=== PATIENT | female | born 1955 | race Caucasian/White ===

== ENCOUNTER → 2017-02-21 | Outpatient (CLI) | payer OTHER ==
[~2017-02-21] MED LIST: GADOBUTROL 10 ML VIAL IVP ONE
== END ==
LOC: FIMAGING 14:05
PROVIDERS: ATTEND Internal Medicine Hematology & Oncology
DX: C50.311 Malignant neoplasm of lower-inner quadrant of right female breast (principal)
CPT/HCPCS: 0159T; A9585; C8908

== ENCOUNTER → 2017-09-28 | Outpatient (CLI) | payer OTHER | LOC: FIMAGING 08:04 | PROVIDERS: ATTEND Internal Medicine Hematology & Oncology | DX: Z12.31 Encounter for screening mammogram for malignant neoplasm of breast (principal); Z85.3 Personal history of malignant neoplasm of breast ==

== ENCOUNTER → 2018-03-15 | Outpatient (CLI) | payer OTHER | LOC: FIMAGING 11:55 | PROVIDERS: ATTEND Internal Medicine Hematology & Oncology | DX: N63.13 Unspecified lump in the right breast, lower outer quadrant (principal); Z85.3 Personal history of malignant neoplasm of breast | CPT/HCPCS: 0159T; A9585; C8908 ==

== ENCOUNTER 2018-08-14 15:03 | Inpatient (IN) | payer OTHER ==
--- NOTE | 2018-08-14 15:12 | EDPHY ---
H & P Stated Complaint: ulcerative colitis flare Time Seen by Provider: 08/14/18 15:11 HPI/ROS: CHIEF COMPLAINT: Worsening ulcerative colitis HISTORY OF PRESENT ILLNESS: The patient presents to the ED with complaints of worsening out ulcerative colitis with 9/10 left lower quadrant pain, vomiting and decreased appetite. The patient has been struggling with the symptoms for some time and recently has been on a 30 day course of prednisone. The patient reports that she has been in communication with her framing carpenter today and ultimately was referred to the ED secondary to her severe symptoms. Patient denies any history of fever, melena or hematemesis. The patient has tried steroid suppositories without improvement of her symptoms. The patient denies any upper respiratory symptoms of cough or congestion. REVIEW OF SYSTEMS: A comprehensive 10 point review of systems is otherwise negative aside from elements mentioned in the history of present illness. Source: Patient Exam Limitations: No limitations - Personal History Current Tetanus Diphtheria and Acellular Pertussis (TDAP): Yes - Medical/Surgical History Hx Asthma: No Hx Chronic Respiratory Disease: No Hx Diabetes: No Hx Cardiac Disease: No Hx Renal Disease: No Hx Cirrhosis: No Hx Alcoholism: No Hx HIV/AIDS: No Hx Splenectomy or Spleen Trauma: No Other PMH: ulcerative colitis - Social History Smoking Status: Never smoked - Physical Exam Exam: General Appearance: Alert, no distress Eyes: Pupils equal and round no pallor or injection ENT, Mouth: Mucous membranes moist Respiratory: There are no retractions, lungs are clear to auscultation Cardiovascular: Regular rate and rhythm Gastrointestinal: Diffuse abdominal tenderness greatest in the left lower quadrant Neurological: 5/5 strength all 4 extremities Skin: Warm and dry, no rashes Musculoskeletal: Neck is supple nontender Extremities: symmetrical, full range of motion Constitutional: Initial Vital Signs Temperature (C) 36.5 C 08/14/18 15:07 Heart Rate 85 08/14/18 15:07 Respiratory Rate 18 08/14/18 15:07 Blood Pressure 118/72 08/14/18 15:07 O2 Sat (%) 98 08/14/18 15:07 O2 Delivery Mode Room Air Allergies/Adverse Reactions: meperidine HCl [From Demerol] Allergy (Verified 08/14/18 15:05) SHORTNESS OF BREATHE Home Medications: Medication Instructions Recorded Estradiol [Estrace Vaginal (*)] 08/14/18 Hydrocortisone [Colocort (*)] 100 mg MO ONCE 08/14/18 Hyoscyamine Sulfate [Levsin, 0.125 mg PO 08/14/18 Hyomax-Sl 0.125 mg (*)] Mesalamine [Canasa Suppository (*)] 1,000 mg [place] HS 08/14/18 predniSONE [predniSONE] 10 mg PO 08/14/18 Medical Decision Making - Diagnostics Imaging Results: Imaging Impressions Abdomen CT 08/14/18 16:22 Impression: 1. Diffuse thickening of the descending and rectosigmoid colon, compatible with colitis, without perforation or abscess. 2. Moderate stool in the proximal colon. 3. Indeterminate 5 mm right liver lesion, which could represent an hemangioma, complex cyst, or other etiology, incompletely characterized on this study. Due to the small size of this finding, it is likely too small to definitively characterize by cross-sectional imaging. Consider MR abdomen with contrast in 3- 6 months to assess for stability in size, and to attempt further characterization unless there are previous studies to document stability of this finding. 4. Additional findings as above. Findings discussed with Dr. Jef Roy on 08/14/2018 at 17:25. ED Course/Re-evaluation: The patient presents to the ED with worsening abdominal pain and vomiting in the setting of known ulcerative colitis which has been refractory to a month of oral steroids. The patient was noted to have fairly significant tenderness on exam. She also was noted to have thrombocytosis. The CT scan of the abdomen pelvis demonstrates fairly significant colitis. The patient had an IV established. She received a L of normal saline. She received IV Zofran. The patient will be started on IV Solu-Medrol. She will require admission to the hospital in a setting of her refractory symptoms. Consultation is made with Dr. Lyman from the hospitalist service. Dr. Harris from Gastroenterology is also been notified. Differential Diagnosis: Differential diagnosis considered includes colitis, perforation, obstruction, diverticulitis - Data Points Laboratory Results: Laboratory Results 08/14/18 15:20 08/14/18 15:20 08/14/18 08/14/18 15:20 15:20 WBC 5.47 10^3/uL 10^3/uL (3.80-9.50) RBC 3.46 10^6/uL L 10^6/uL (4.18-5.33) Hgb 10.0 g/dL L g/dL (12.6-16.3) Hct 30.2 % L % (38.0-47.0) MCV 87.3 fL fL (81.5-99.8) MCH 28.9 pg pg (27.9-34.1) MCHC 33.1 g/dL g/dL (32.4-36.7) RDW 12.9 % % (11.5-15.2) Plt Count 616 10^3/uL H 10^3/uL (150-400) MPV 8.1 fL L fL (8.7-11.7) Neut % (Auto) Not Reported Lymph % (Auto) Not Reported [place] % (Auto) Not Reported Eos % (Auto) Not Reported Baso % (Auto) Not Reported Nucleat RBC Rel Count Not Reported Absolute Neuts (auto) Not Reported Absolute Lymphs (auto) Not Reported Absolute Monos (auto) Not Reported Absolute Eos (auto) Not Reported Absolute Basos (auto) Not Reported Absolute Nucleated RBC Not Reported Immature Gran % Not Reported Seg Neutrophils % 66.7 % % Band Neutrophils % 22.2 % % Lymphocytes % 8.1 % % Monocytes % 3.0 % % Eosinophils % 0.0 % % Basophils % 0.0 % % Metamyelocytes % 0.0 % % Myelocytes % 0.0 % % Promyelocytes % 0.0 % % Blast Cells % 0.0 % % Immature Gran # Not Reported Absolute Seg Neuts 3.65 10^3/uL 10^3/uL (1.70-6.50) Absolute Band Neuts 1.21 10^3/uL H 10^3/uL (0.00-0.70) Absolute Lymphocytes 0.44 10^3/uL L 10^3/uL (1.00-3.00) Absolute Monocytes 0.16 10^3/uL L 10^3/uL (0.30-0.80) Absolute Eosinophils 0.00 10^3/uL L 10^3/uL (0.03-0.40) Absolute Basophils 0.00 10^3/uL L 10^3/uL (0.02-0.10) Absolute Metamyelocyte 0.00 10^3/mL 10^3/mL (0.00-0.00) Absolute Myelocytes 0.00 10^3/mL 10^3/mL (0.00-0.00) Absolute Promyelocytes 0.00 10^3/uL 10^3/uL (0.00-0.00) Absolute Plasma Cells 0.00 10^3/uL 10^3/uL (0.00-0.00) Nucleated RBCs 0 /100 WBC /100 WBC (0-0) Absolute Blast Cells 0.00 10^3/uL 10^3/uL (0.00-0.00) Plasma Cells % 0.0 % % Toxic Granulation PRESENT H Platelet Estimate INCREASED H (ADEQ) Polychromasia 1+ H Echinocytes 1+ H Sodium 132 mEq/L L mEq/L (135-145) Potassium 4.5 mEq/L mEq/L (3.3-5.0) Chloride 97 mEq/L mEq/L (97-110) Carbon Dioxide 23 mEq/l mEq/l (22-31) Anion Gap 12 mEq/L mEq/L (6-14) BUN 15 mg/dL mg/dL (7-23) Creatinine 0.8 mg/dL mg/dL (0.6-1.0) Estimated GFR > 60 Glucose 163 mg/dL H mg/dL (70-100) Calcium 8.8 mg/dL mg/dL (8.5-10.4) Total Bilirubin 0.2 mg/dL mg/dL (0.1-1.4) Conjugated Bilirubin 0.1 mg/dL mg/dL (0.0-0.5) Unconjugated Bilirubin 0.1 mg/dL mg/dL (0.0-1.1) AST 12 IU/L L IU/L (14-46) ALT 18 IU/L IU/L (9-52) Alkaline Phosphatase 66 IU/L IU/L (38-126) Total Protein 6.2 g/dL L g/dL (6.3-8.2) Albumin 3.1 g/dL L g/dL (3.5-5.0) Lipase 47 IU/L IU/L (23-300) Medications Given: Discontinued Medications Sodium Chloride (Ns) 1,000 mls @ 0 mls/hr IV EDNOW ONE; Wide Open PRN Reason: Protocol Stop: 08/14/18 15:31 Last Admin: 08/14/18 15:45 Dose: 1,000 mls Methylprednisolone Sodium Succinate (Solu-Medrol) 125 mg IVP EDNOW ONE Stop: 08/14/18 17:33 Last Admin: 08/14/18 17:39 Dose: 125 mg Departure - Departure Disposition: [facility] Inpatient Acute Clinical Impression: Abdominal pain Qualifiers: Abdominal location: left lower quadrant Qualified Code(s): R10.32 - Left lower quadrant pain Ulcerative colitis Qualifiers: Ulcerative colitis location: ulcerative pancolitis Digestive disease complication type: without complication Qualified Code(s): K51.00 - Ulcerative ( chronic) pancolitis without complications Condition: Fair
[2018-08-14] MEDS ORDERED: NS 1,000 ML IV ONE (15:30)
[2018-08-14 15:41] LABS: PLATELET COUNT 616 10^3/uL (150-400)
[2018-08-14] MEDS ORDERED: IOPAMIDOL (ISOVUE-300) 100 ML BTL ONE (16:39)
[2018-08-14] MEDS ORDERED: methylPREDNISolone SOD SUCC 125 MG/2 ML VIAL IVP ONE (17:32)
[2018-08-14] MEDS ORDERED: ACETAMINOPHEN 325 MG TAB PO PRN (18:35)
[2018-08-14] MEDS ORDERED: HYDROmorphONE/DILAUDID 1 MG/ML INJ IVP PRN (18:35)
[2018-08-14] MEDS ORDERED: ONDANSETRON 4 MG/2 ML VIAL IVP PRN (18:35)
[2018-08-14] MEDS ORDERED: ONDANSETRON DISINTEGRATING 4 MG TAB PO PRN (18:35)
[2018-08-14] MEDS ORDERED: IBUPROFEN 600 MG TAB PO PRN (18:57)
[2018-08-14] MEDS ORDERED: HYOSCYAMINE SULFATE 0.125 MG TAB PO PRN (18:57)
--- NOTE | 2018-08-14 19:04 | PDGENHP ---
History and Physical - Chief Complaint Abdominal Pain, Vomiting - History of Present Illness Missy Vicente is a 63 yo F with a PMHx of Ulcerative colitis (diagnosed around age 20) who presents to [facility] for worsening abdominal pain, nausea, vomiting, and decreased PO intake. Patient reports she has had "flare" symptoms for the past 6 months including bloody diarrhea, abdominal pain, nausea, and vomiting. She is followed by Dr. Cobb of GI of the [facility] who started her on a Prednisone taper 2 weeks ago. After decreasing to 30 mg Prednisone she began experiencing worsening symptoms. She called GI who recommended increasing back to 40 mg and present to ED. Previously, she was controlled on Mesalamine suppositories for flares. She has had episodes of sharp LLQ abdominal pain with associated nausea and vomiting. She has had continuous loose stools with bright red blood. History Information - Allergies/Home Medication List Allergies/Adverse Reactions: meperidine HCl [From Demerol] Allergy (Verified 08/14/18 18:07) SHORTNESS OF BREATHE Home Medications: Hyoscyamine Sulfate [Levsin, Hyomax-Sl 0.125 mg (*)] 0.125 mg PO Q4H PRN [Last Taken 08/14/18 0300] Ibuprofen [Motrin (*)] 600 mg PO Q6H PRN 08/14/18 [Last Taken 08/14/18] Mesalamine [Canasa Suppository (*)] 1,000 mg [place] HS 08/14/18 [Last Taken 08/12/18 ] predniSONE [predniSONE] 40 mg PO DAILY 08/14/18 [Last Taken 08/14/18] I have personally reviewed and updated: family history, medical history, social history, surgical history - Past Medical History Additional medical history: ulcerative colitis - Surgical History Reports: no pertinent surgical hx - Family History Positive for: non-pertinent - Social History Smoking Status: Never smoked Review of Systems Review of Systems: ROS: 10pt was reviewed & negative except for what was stated in HPI & below Physical Exam Physical Exam: Temp Pulse Resp BP Pulse Ox 36.5 C 76 16 125/71 H 97 08/14/18 15:07 08/14/18 17:08 08/14/18 17:08 08/14/18 17:08 08/14/18 17:08 Constitutional: uncomfortable Eyes: PERRL Ears, Nose, Mouth, Throat: moist mucous membranes Cardiovascular: regular rate and rhythym, no murmur, rub, or gallop Respiratory: no respiratory distress, clear to auscultation Gastrointestinal: tenderness, No rebound, No distension Genitourinary: No no bladder tenderness Skin: warm Musculoskeletal: full muscle strength Neurologic: AAOx3 Psychiatric: interacting appropriately Lab Data & Imaging Review 08/14/18 15:20 08/14/18 15:20 WBC 5.47 10^3/uL (3.80-9.50) 08/14/18 15:20 RBC 3.46 10^6/uL (4.18-5.33) L 08/14/18 15:20 Hgb 10.0 g/dL (12.6-16.3) L 08/14/18 15:20 Hct 30.2 % (38.0-47.0) L 08/14/18 15:20 MCV 87.3 fL (81.5-99.8) 08/14/18 15:20 MCH 28.9 pg (27.9-34.1) 08/14/18 15:20 MCHC 33.1 g/dL (32.4-36.7) 08/14/18 15:20 RDW 12.9 % (11.5-15.2) 08/14/18 15:20 Plt Count 616 10^3/uL (150-400) H 08/14/18 15:20 MPV 8.1 fL (8.7-11.7) L 08/14/18 15:20 Neut % (Auto) Not Reported 08/14/18 15:20 Lymph % (Auto) Not Reported 08/14/18 15:20 [place] % (Auto) Not Reported 08/14/18 15:20 Eos % (Auto) Not Reported 08/14/18 15:20 Baso % (Auto) Not Reported 08/14/18 15:20 Nucleat RBC Rel Count Not Reported 08/14/18 15:20 Absolute Neuts (auto) Not Reported 08/14/18 15:20 Absolute Lymphs (auto) Not Reported 08/14/18 15:20 Absolute Monos (auto) Not Reported 08/14/18 15:20 Absolute Eos (auto) Not Reported 08/14/18 15:20 Absolute Basos (auto) Not Reported 08/14/18 15:20 Absolute Nucleated RBC Not Reported 08/14/18 15:20 Immature Gran % Not Reported 08/14/18 15:20 Seg Neutrophils % 66.7 % 08/14/18 15:20 Band Neutrophils % 22.2 % 08/14/18 15:20 Lymphocytes % 8.1 % 08/14/18 15:20 Monocytes % 3.0 % 08/14/18 15:20 Eosinophils % 0.0 % 08/14/18 15:20 Basophils % 0.0 % 08/14/18 15:20 Metamyelocytes % 0.0 % 08/14/18 15:20 Myelocytes % 0.0 % 08/14/18 15:20 Promyelocytes % 0.0 % 08/14/18 15:20 Blast Cells % 0.0 % 08/14/18 15:20 Immature Gran # Not Reported 08/14/18 15:20 Absolute Seg Neuts 3.65 10^3/uL (1.70-6.50) 08/14/18 15:20 Absolute Band Neuts 1.21 10^3/uL (0.00-0.70) H 08/14/18 15:20 Absolute Lymphocytes 0.44 10^3/uL (1.00-3.00) L 08/14/18 15:20 Absolute Monocytes 0.16 10^3/uL (0.30-0.80) L 08/14/18 15:20 Absolute Eosinophils 0.00 10^3/uL (0.03-0.40) L 08/14/18 15:20 Absolute Basophils 0.00 10^3/uL (0.02-0.10) L 08/14/18 15:20 Absolute Metamyelocyte 0.00 10^3/mL (0.00-0.00) 08/14/18 15:20 Absolute Myelocytes 0.00 10^3/mL (0.00-0.00) 08/14/18 15:20 Absolute Promyelocytes 0.00 10^3/uL (0.00-0.00) 08/14/18 15:20 Absolute Plasma Cells 0.00 10^3/uL (0.00-0.00) 08/14/18 15:20 Nucleated RBCs 0 /100 WBC (0-0) 08/14/18 15:20 Absolute Blast Cells 0.00 10^3/uL (0.00-0.00) 08/14/18 15:20 Plasma Cells % 0.0 % 08/14/18 15:20 Toxic Granulation PRESENT H 08/14/18 15:20 Platelet Estimate INCREASED (ADEQ) H 08/14/18 15:20 Polychromasia 1+ H 08/14/18 15:20 Echinocytes 1+ H 08/14/18 15:20 Sodium 132 mEq/L (135-145) L 08/14/18 15:20 Potassium 4.5 mEq/L (3.3-5.0) 08/14/18 15:20 Chloride 97 mEq/L (97-110) 08/14/18 15:20 Carbon Dioxide 23 mEq/l (22-31) 08/14/18 15:20 Anion Gap 12 mEq/L (6-14) 08/14/18 15:20 BUN 15 mg/dL (7-23) 08/14/18 15:20 Creatinine 0.8 mg/dL (0.6-1.0) 08/14/18 15:20 Estimated GFR > 60 08/14/18 15:20 Glucose 163 mg/dL (70-100) H 08/14/18 15:20 Calcium 8.8 mg/dL (8.5-10.4) 08/14/18 15:20 Total Bilirubin 0.2 mg/dL (0.1-1.4) 08/14/18 15:20 Conjugated Bilirubin 0.1 mg/dL (0.0-0.5) 08/14/18 15:20 Unconjugated Bilirubin 0.1 mg/dL (0.0-1.1) 08/14/18 15:20 AST 12 IU/L (14-46) L 08/14/18 15:20 ALT 18 IU/L (9-52) 08/14/18 15:20 Alkaline Phosphatase 66 IU/L (38-126) 08/14/18 15:20 Total Protein 6.2 g/dL (6.3-8.2) L 08/14/18 15:20 Albumin 3.1 g/dL (3.5-5.0) L 08/14/18 15:20 Lipase 47 IU/L (23-300) 11/27/18 15:20 Assessment & Plan Assessment: Ulcerative colitis Flare(Acute) - Worsening symptoms with increased abdominal pain, n/v, decreased PO intake, bloody diarrhea - Followed by GI of the [facility], Dr. Cobb, who recently started patient on Prednisone 40 mg qd - CT A/P on admission shows diffuse thickening of descending colon, rectosigmoid , no perforation/abscess - S/p 125 mg IV Solumedrol in ED, will continue high dose steroids with IV Hydrocortisone 100 mg q8 hours - Continue home Levsin, Mesalamine suppository - Consult GI in the AM, ED called GI bpm solution architect - NPO for now, will give IVF overnight Colitis - Management as above Hyponatremia - Likely hypotonic - IVF overnight - Repeat BMP in the AM FEN: IVF, NPO PPx: Lovenox Code: FULL Dispo: Admit to Medicine
[2018-08-14] MEDS: NS 1,000 ML IV SCH (19:55)
[2018-08-14] MEDS: MESALAMINE 1,000 MG SUPP PR SCH (20:19)
[2018-08-14] MEDS: HYDROCORTISONE 100 MG/2 ML VIAL IVP SCH (20:20)
[2018-08-15 04:46] LABS: PLATELET COUNT 499 10^3/uL (150-400)
[2018-08-15] MEDS: HYDROCORTISONE 100 MG/2 ML VIAL IVP SCH (05:48)
[2018-08-15] MEDS: HYOSCYAMINE SULFATE 0.125 MG TAB PO PRN ×4 (08:06→21:20)
[2018-08-15] MEDS: ENOXAPARIN 40 MG/0.4 ML SYR SC SCH (09:38)
--- NOTE | 2018-08-15 09:52 | ASMTCMCOM ---
CM Note CM Note Notes: Pt is a 63 y/o female admitted for ulcerative colitis flare. Pt was diagnosed around age 20. Pt is being followed by GI of the [facility]. Therapies have been ordered and awaiting recommendations. GI has been consulted along w/ integrative care and acupuncture. Needs are TBD at this time. CM to follow. Plan: TBD Date Signed: 08/15/2018 09:52 AM Electronically Signed By:YOLANDA Lopez
--- NOTE | 2018-08-15 10:13 | HOSPPROG ---
Hospitalist Progress Note Assessment/Plan: 63y female with abd pain and diarrhea. First encounter, chart reviewed. #Ulcerative colitis Flare(Acute) - Worsening symptoms - increased abdominal pain, n/v, decreased PO intake, bloody diarrhea - Followed by GI of the [facility], Dr. Cobb, who recently started patient on Prednisone 40 mg qd - CT A/P on admission shows diffuse thickening of descending colon, rectosigmoid , no perforation/abscess - S/p 125 mg IV Solumedrol in ED, will continue high dose steroids with IV Hydrocortisone 100 mg q8 hours - Continue home Levsin, Mesalamine suppository - Consult GI, d/w Dr Harris - Clear liquids #Colitis - Management as above #Hyponatremia - hypovolemia - IVF - Repeat BMP better #HTN -pain -anxiety -follow FEN: IVF clears PPx: Lovenox Code: FULL Dispo: Admit to Medicine Subjective: Still having significant abd pain and cramping. Diarrhea. Objective: Vital Signs Temp Pulse Resp BP Pulse Ox 36.7 C 70 16 163/90 H 97 08/15/18 07:23 08/15/18 07:23 08/15/18 07:23 08/15/18 07:23 08/15/18 07:23 Laboratory Results 08/15/18 04:15 08/15/18 04:15 08/14/18 08/15/18 08/16/18 05:59 05:59 05:59 Intake Total 1000 Balance 1000 - Physical Exam Constitutional: appears nourished, chronically ill appearing, uncomfortable Eyes: PERRL, anicteric sclera, EOMI Ears, Nose, Mouth, Throat: moist mucous membranes, hearing normal, ears appear normal Cardiovascular: regular rate and rhythym, No JVD, No edema Respiratory: no respiratory distress, no rales or rhonchi, clear to auscultation Gastrointestinal: tenderness, distension, No ascites Skin: warm, normal color, No mottled Musculoskeletal: normal joint ROM, no joint effusions, generalized weakness Neurologic: AAOx3 Psychiatric: interacting appropriately, not anxious, not encephalopathic, thought process linear ICD10 Worksheet Patient Problems: Problems Problem Status Onset Abdominal pain Acute Ulcerative colitis Acute
--- NOTE | 2018-08-15 10:30 | PDMN ---
Medical Necessity [place] [facility] [place] Inflammatory Bowel Disease: 63 yo w/ acute ulcerative colitis flare. [place] [facility] [place] worsening s/x w/ increased abd pain, n/v, bloody diarrhea not responsive to outpt tx - she is being followed by GI of the [facility] and started on prednisone taper w/ worsening s/sx which brought her to hospital. Pt made NPO, IVF started, IV steroids, GI consult, trend H&H, transfuse PRN.
[2018-08-15] MEDS: NS 1,000 ML IV SCH (12:01)
[2018-08-15] MEDS: methylPREDNISolone SOD SUCC 40 MG/ML VIAL IVP SCH ×2 (14:32→22:12)
--- NOTE | 2018-08-15 20:47 | GCON ---
GI CONSULTATION DATE OF CONSULTATION: 08/15/2018 REFERRING PHYSICIAN: Bakari Lyman DO REASON FOR CONSULTATION: Bloody diarrhea, left lower quadrant abdominal pain and flare of colitis. HISTORY OF PRESENT ILLNESS: Missy is a 63-year-old female who has a longstanding history of inflammatory bowel disease. 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 She was treated with hydrocortisone and 5-ASA suppositories with prompt relief of her symptoms. Over the next 20 years she had only intermittent mild flares of proctitis, typically every 5 years. In 2009, she did have a flare of proctitis which was identified on endoscopy and treated with mesalamine suppositories with relief. She did have a followup surveillance colonoscopy in [address] Cobb which showed mild proctitis, albeit random biopsies of the colon showed microscopic inflammation of the left colon in addition to the rectum. She states she was doing fairly well until early July when she developed bloody diarrhea and left lower quadrant abdominal cramping. On August 01, she was started on prednisone 40 mg daily with improvement in her symptoms. She attempted to decrease down to 30 mg daily on the , albeit with flare of her symptoms with worsening bloody diarrhea and left lower quadrant abdominal cramping. On the , she increased back up to 20 mg daily and tried dicyclomine for cramping without relief. She was also given a trial of Rowasa enemas without relief. She presented to the emergency room last night due to increasing left lower quadrant abdominal cramping (pain 10/10) as well as nausea and vomiting and anorexia. She was started on Solu-Medrol initially at 125 mg IV push followed by 100 mg IV q.8 hours. She has had a decrease in her abdominal discomfort and diarrhea, albeit is still passing some loose, watery stools. Her nausea has subsided. She has denied any arthritic complaints, fever, chills, or night sweats. MEDICATIONS: Prior to admission, including prednisone 40 mg daily, dicyclomine 10 mg p.o. q.4 hours p.r.n. cramping, Canasa suppositories p.r.n., ibuprofen 600 mg p.o. q.6 hours p.r.n. ALLERGIES: She has no known drug allergies. PAST MEDICAL HISTORY: Other than noted in the HPI, is unremarkable. PAST SURGICAL HISTORY: Unremarkable. FAMILY HISTORY: Negative for inflammatory bowel disease. SOCIAL HISTORY: She is a nonsmoker. Does not consume excessive quantities of alcohol. REVIEW OF SYSTEMS: Other than noted in the HPI, is negative for comprehensive review of systems on my examination today. PHYSICAL EXAMINATION: GENERAL: Well-developed, well-nourished female, lying in bed, appearing in no acute distress. VITALS: Temperature is 36.8 Celsius, pulse 95 and regular, blood pressure 130/78, respiratory rate 16, O2 saturation 95% on room air. INTEGUMENT: Clear. HEENT: Head atraumatic, normocephalic. Pupils equal, round, reactive to light. EOMs are intact. Sclerae nonicteric. Nares patent. Mucous membranes moist. Dentition good. NECK: Supple. Trachea midline. LYMPHATICS: No palpable cervical or axillary adenopathy. LUNGS: Clear to percussion and auscultation. CARDIOVASCULAR: Regular rhythm and rate. Normal S1, S2, without murmur. Peripheral pulses strong bilaterally. No pedal edema. GASTROINTESTINAL: Abdomen slightly distended. Positive bowel sounds. No liver or spleen tip palpable. There is tenderness in the right and left lower quadrants to deep palpation without palpable mass or rebound. EXTREMITIES: Without deformity. NEURO: Patient is alert and oriented x3. No focal neurologic deficits. LABS: White count 5.12. Hemoglobin on admission 10.0, now 8.6. Hematocrit on admission 30.2, now 26.8. Platelets 499,000. Electrolytes normal. BUN 13, creatinine 0.6, glucose 130, calcium 8.6. LFTs normal. Lipase 47. CT scan of the abdomen and pelvis on admission showed diffuse thickening of the descending and rectosigmoid colon compatible with colitis, without perforation or abscess. Moderate stool in the proximal colon. No other abnormalities. IMPRESSION: 1. Flare of left-sided ulcerative colitis, unresponsive to outpatient therapy. 2. Anemia secondary to chronic blood loss of the colon. RECOMMENDATIONS: 1. Diet as tolerated up to a full liquid diet. 2. Continue with IV steroids, so could decrease down to 40 mg IV q.12 hours tomorrow. 3. Will follow with you. /[id number]/MODL MTDD
[2018-08-15] MEDS: MESALAMINE 1,000 MG SUPP PR SCH (22:12)
[2018-08-16] MEDS: HYOSCYAMINE SULFATE 0.125 MG TAB PO PRN ×2 (02:08→06:32)
[2018-08-16] MEDS: methylPREDNISolone SOD SUCC 40 MG/ML VIAL IVP SCH ×3 (05:54→22:08)
[2018-08-16] MEDS: ENOXAPARIN 40 MG/0.4 ML SYR SC SCH (08:00)
--- NOTE | 2018-08-16 11:10 | SOAPPROG ---
SOAP Progress Note Assessment/Plan: Assessment: 1. Left sided LESLIE with flare; clinically improved on IV solumedrol. 2. Posst-hemorrhagic anemia; stable. 3. Rectal spasm secondary to colitis. Plan: 1. Will continue Solumedrol and 40 mg IV Q8 hours an addition day. 2. Bentyl PRN before BM to decrease spasm (would use as a scheduled drug). 3. May switch to po Prednisone at 40 mg PO BID tomorrow if symptoms significantly improved by then. Robin Harris MD 08/16/18 11:06 Subjective: CC: Left sided LESLIE with flare. Interval HPI: Patient with less, more formed BM's today without blood. Still having severe rectal spasm with BM's. Objective: Vital Signs Temp Pulse Resp BP Pulse Ox 36.8 C 77 14 151/89 H 96 08/16/18 07:19 08/16/18 07:19 08/16/18 07:19 08/16/18 07:19 08/16/18 07:19 Laboratory Results 08/16/18 04:16 08/15/18 04:15 08/15/18 08/16/18 08/17/18 05:59 05:59 05:59 Intake Total 1000 350 Balance 1000 350 Physical Exam - Physical Exam General Appearance: WD/WN, alert, no apparent distress Respiratory: lungs clear, normal breath sounds Cardiac/Chest: regular rate, rhythm Abdomen: normal bowel sounds, non-tender, soft Skin: normal color, warm/dry Neuro/Psych: alert, normal mood/affect, oriented x 3 ICD10 Worksheet Patient Problems: Problems Problem Status Onset Abdominal pain Acute Ulcerative colitis Acute
--- NOTE | 2018-08-16 15:32 | HOSPPROG ---
Hospitalist Progress Note Assessment/Plan: 63y female with abd pain and diarrhea. #Ulcerative colitis Flare(Acute) - improved today - bloody diarrhea resolved - CT A/P on admission shows diffuse thickening of descending colon, rectosigmoid , no perforation/abscess - S/p 125 mg IV Solumedrol in ED, will continue high dose steroids with IV Hydrocortisone 100 mg q8 hours - Continue home Levsin, Mesalamine suppository - regular diet #Colitis - Management as above #Hyponatremia - hypovolemia - IVF - Repeat BMP better #ABLA -2/2 diarrhea -stable -asymptomatic #HTN -pain -anxiety -follow -better FEN: regular PPx: Lovenox Code: FULL Dispo: Admit to Medicine Subjective: Feeling better today. Still significant pain when BM. Up walking. Objective: Vital Signs Temp Pulse Resp BP Pulse Ox 37.1 C 92 14 114/74 96 08/16/18 12:05 08/16/18 12:05 08/16/18 12:05 08/16/18 12:05 08/16/18 12:05 Laboratory Results 08/16/18 04:16 08/15/18 04:15 08/15/18 08/16/18 08/17/18 05:59 05:59 05:59 Intake Total 1000 350 Balance 1000 350 - Physical Exam Constitutional: no apparent distress, appears nourished Eyes: PERRL, anicteric sclera Ears, Nose, Mouth, Throat: moist mucous membranes, hearing normal Cardiovascular: No JVD, No edema Respiratory: no respiratory distress, reduced air movement Gastrointestinal: tenderness, No ascites Skin: warm, normal color Musculoskeletal: normal joint ROM, generalized weakness Neurologic: AAOx3 Psychiatric: interacting appropriately, not anxious, not encephalopathic ICD10 Worksheet Patient Problems: Problems Problem Status Onset Abdominal pain Acute Ulcerative colitis Acute
[2018-08-16] MEDS: MESALAMINE 1,000 MG SUPP PR SCH (22:07)
[2018-08-17] MEDS: HYOSCYAMINE SULFATE 0.125 MG TAB PO PRN ×2 (06:55→19:09)
[2018-08-17] MEDS: methylPREDNISolone SOD SUCC 40 MG/ML VIAL IVP SCH ×3 (07:32→22:07)
[2018-08-17] MEDS: ENOXAPARIN 40 MG/0.4 ML SYR SC SCH (07:37)
--- NOTE | 2018-08-17 09:26 | SOAPPROG ---
SOAP Progress Note Assessment/Plan: Assessment: 1. Left sided LESLIE with flare; clinically improved on IV solumedrol. Several small BM with small amount of blood over last 24 hours. 2. Post-hemorrhagic anemia; stable. 3. Rectal spasm secondary to colitis; improved but still recent. Plan: 1. Will continue Solumedrol and 40 mg IV Q8 hours an additional day. 2. Continue Bentyl PRN before BM to decrease spasm. 3. May switch to po Prednisone at 40 mg PO BID tomorrow if symptoms significantly improved by then. 4. Dr. Da Silva will miner pick our service after 5PM tonight. Robin Harris MD 08/17/18 09:29 Subjective: CC: Left sided LESLIE with flare. Interval HPI: Patient felt much better yesterday, however still having several small BM with some blood. Also having night sweats and rectal spasm with PM's albeit less pain with PRN Bentyl. Objective: Vital Signs Temp Pulse Resp BP Pulse Ox 36.7 C 76 18 152/94 H 90 L 08/17/18 07:47 08/17/18 07:47 08/17/18 07:47 08/17/18 07:47 08/17/18 07:47 Laboratory Results 08/16/18 04:16 08/15/18 04:15 08/16/18 08/17/18 08/18/18 05:59 05:59 05:59 Intake Total 350 Balance 350 Physical Exam - Physical Exam General Appearance: WD/WN, alert, no apparent distress Respiratory: lungs clear, normal breath sounds Abdomen: normal bowel sounds, non-tender, soft (tender in LLQ without mass or rebound.) Neuro/Psych: alert, normal mood/affect, oriented x 3 ICD10 Worksheet Patient Problems: Problems Problem Status Onset Abdominal pain Acute Ulcerative colitis Acute
--- NOTE | 2018-08-17 09:57 | ASMTCMCOM ---
CM Note CM Note Notes: Spoke with RN, pt still having bowel cramps. Otherwise she is still independent, will dc home when medically stable. DC Plan: Independent Date Signed: 08/17/2018 09:56 AM Electronically Signed By:Cari Purcell RN
--- NOTE | 2018-08-17 10:09 | HOSPPROG ---
Hospitalist Progress Note Assessment/Plan: Missy Vicente is a 63 yo F with a PMHx of Ulcerative colitis (diagnosed around age 20) who presents to [facility] for worsening abdominal pain, nausea, vomiting, and decreased PO intake. First encounter, chart reviewed. #Ulcerative colitis Flare(Acute) - CT A/P on admission shows diffuse thickening of descending colon, rectosigmoid , no perforation/abscess - iv steroids decreased today to 40 mg q 8 hours - Continue home Levsin, Mesalamine suppository - regular diet -rectal spasms due to the above -if better tomorrow; will change to prednisone bid -gave her and her a hand out about UC and treatments -since she will be on steroids, high dose, have added calcium and Vitamin D #Hyponatremia - resolved, 2/2 hypovolemia #ABLA -2/2 diarrhea -asymptomatic #HTN -pain -anxiety #Plan: repeat labs in a.m., change to oral prednisone if continues to feel better. Will f/u with Dr Swanson. Subjective: Missy has no significant pain, but is tender in her LLQ area. Objective: Vital Signs Temp Pulse Resp BP Pulse Ox 36.7 C 76 18 152/94 H 90 L 08/17/18 07:47 08/17/18 07:47 08/17/18 07:47 08/17/18 07:47 08/17/18 07:47 Laboratory Results 08/16/18 04:16 08/15/18 04:15 08/16/18 08/17/18 08/18/18 05:59 05:59 05:59 Intake Total 350 Balance 350 - Physical Exam Constitutional: no apparent distress, other (thin) Eyes: PERRL Ears, Nose, Mouth, Throat: hearing normal Cardiovascular: regular rate and rhythym Respiratory: no respiratory distress Gastrointestinal: tenderness (llq) Skin: warm, No normal color (pale) Musculoskeletal: full muscle strength Neurologic: AAOx3 Psychiatric: interacting appropriately ICD10 Worksheet Patient Problems: Problems Problem Status Onset Abdominal pain Acute Ulcerative colitis Acute
[2018-08-17] MEDS ORDERED: DICYCLOMINE 10 MG CAP PO PRN (12:05)
[2018-08-17] MEDS: CALCIUM CARB W/VIT D 500 MG TAB PO SCH ×2 (13:39→22:08)
[2018-08-17] MEDS: MESALAMINE 1,000 MG SUPP PR SCH (22:08)
[2018-08-18] MEDS: HYOSCYAMINE SULFATE 0.125 MG TAB PO PRN (07:55)
[2018-08-18 08:08] VITALS: BP 150/78
[2018-08-18] MEDS: ENOXAPARIN 40 MG/0.4 ML SYR SC SCH (08:12)
[2018-08-18] MEDS: CALCIUM CARB W/VIT D 500 MG TAB PO SCH (08:15)
[2018-08-18] MEDS: methylPREDNISolone SOD SUCC 40 MG/ML VIAL IVP SCH (08:16)
--- NOTE | 2018-08-18 09:13 | HOSPPROG ---
Hospitalist Progress Note Assessment/Plan: Missy Vicente is a 63 yo F with a PMHx of Ulcerative colitis (diagnosed around age 20) who presents to [facility] for worsening abdominal pain, nausea, vomiting, and decreased PO intake. #Ulcerative colitis Flare(Acute) - CT A/P on admission shows diffuse thickening of descending colon, rectosigmoid , no perforation/abscess - iv steroids decreased to 40 mg q 8 hours, but IV is out and difficult stick- will start PO steroids and see how she dose - Continue home Levsin, Mesalamine suppository - regular diet - rectal spasms due to the above & LLQ abd pain #Hyponatremia - resolved, 2/2 hypovolemia #ABLA -2/2 diarrhea -stable #HTN -bp has been consistently elevated. Missy will f/u if cont to be elevated. #Plan: see how she does today and see if she has increase pain w bowel movements. she has a f/u appt w Dr Swanson this coming Monday. Subjective: Missy isn't having pain this morning, had some pain last night w a bowel movement. Objective: Vital Signs Temp Pulse Resp BP Pulse Ox 36.8 C 72 15 150/78 H 96 08/18/18 08:00 08/18/18 08:00 08/18/18 08:00 08/18/18 08:00 08/18/18 08:00 Laboratory Results 08/18/18 04:17 08/18/18 04:17 08/17/18 08/18/18 08/19/18 05:59 05:59 05:59 Intake Total 1500 Balance 1500 - Physical Exam Constitutional: no apparent distress, appears nourished Eyes: PERRL Ears, Nose, Mouth, Throat: hearing normal Respiratory: no respiratory distress Gastrointestinal: normoactive bowel sounds, tenderness (slight in llq) Skin: warm Musculoskeletal: full muscle strength Neurologic: AAOx3 Psychiatric: interacting appropriately ICD10 Worksheet Patient Problems: Problems Problem Status Onset Abdominal pain Acute Ulcerative colitis Acute
[2018-08-18] MEDS ORDERED: predniSONE 20 MG TAB PO SCH (09:15)
--- NOTE | 2018-08-18 10:11 | SOAPPROG ---
ROSA Progress Note Assessment/Plan: Assessment: Very pleasant 63 year old woman with left sided Ulcerative Colitis. Patient with out significant diarrhea however has left lower quadrant pain and spasm. Plan: 1. Decrease Prednisone to 40 mg PO daily 2. Would d/c Canasa and treat with Mesalamine enema, 1 NC qhs. would treat for two weeks. May require longer therapy depending on her clinical response. 3. Would also add an Oral Mesalamine, Lialda 4.8 grams PP daily (or generic equivalent) 4. Low fiber diet for the next 1 - 2 weeks 5. Patient scheduled to see Dr. Swanson as an outpatient on Monday 6. Potentially discharge later today if tolerating PO prednisone and oral mesalamine 08/18/18 10:02 Subjective: CC: LLQ pain and left sided UC Patient reports to be doing better. Still with some LLQ discomfort and cramps. No diarrhea or hematochezia. Objective: Vital Signs Temp Pulse Resp BP Pulse Ox 36.8 C 72 15 150/78 H 96 08/18/18 08:00 08/18/18 08:00 08/18/18 08:00 08/18/18 08:00 08/18/18 08:00 Laboratory Results 08/18/18 04:17 08/18/18 04:17 08/17/18 08/18/18 08/19/18 05:59 05:59 05:59 Intake Total 1500 Balance 1500 Physical Exam - Physical Exam General Appearance: alert, no apparent distress Respiratory: normal breath sounds Cardiac/Chest: regular rate, rhythm Abdomen: normal bowel sounds, soft, other (tenderness to palpation in the LLQ) Skin: normal color, warm/dry Neuro/Psych: no motor/sensory deficits, alert, normal mood/affect, oriented x 3 ICD10 Worksheet Patient Problems: Problems Problem Status Onset Abdominal pain Acute Ulcerative colitis Acute
[2018-08-18] MEDS ORDERED: MESALAMINE 800 MG TAB.DR PO SCH (16:00)
--- NOTE | 2018-08-19 01:38 | GDS ---
DISCHARGE DIAGNOSES: 1. Ulcerative colitis and acute flare. 2. Hyponatremia. 3. Acute blood loss anemia. 4. Hypertension. CONSULTATION: Robin Harris MD. BRIEF HISTORY: The patient is a 63-year-old female who has a longstanding history of inflammatory bowel disease. 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 She was treated hydrocortisone and 5-ASA suppositories with prompt relief of her symptoms. Over 20 years she had intermittent mild flares of proctitis typically over 5 years. She has had followup colonoscopies , which showed mild proctitis, and the biopsy showed microscopic inflammation of the left colon in addition to the rectum. She was doing well early in July when she started to develop bloody diarrhea. She was started on prednisone 40 mg daily with improvement in her symptoms. When she decreased the prednisone down, she started having worsening bloody diarrhea and worsening left lower quadrant abdominal cramping. She came to the hospital, because she was having ongoing bloody diarrhea and left lower quadrant abdominal pain. She had a CT of the abdomen performed, which showed diffuse thickening of the descending and rectosigmoid colon compatible with colitis without perforation of abscess. She had moderate stool in the proximal colon. She had an indeterminate 5 mm right liver lesion, which could represent hemangioma. She improved throughout her stay and was placed on IV steroids. The patient will be discharged home and follow up with Dr. Swanson as scheduled this week on Monday. HOSPITAL COURSE PER PROBLEM: 1. Ulcerative colitis. Overall, she is markedly better. Will continued her Levsin, mesalamine has been changed to oral. 2. Hyponatremia. Resolved. 3. Acute blood loss anemia. This is secondary to her diarrhea and bloody stools, stable. 4. Hypertension. Her blood pressure has been consistently elevated. She should follow up with her primary care provider. DISCHARGE CONDITION: Stable. Blood pressure is 150/78, heart rate is 78, respiratory rate 15, O2 sats on room air 96%, temperature is 36.8 Celsius. MEDICATIONS AT DISCHARGE: Please see the EMR. DISCHARGE INSTRUCTIONS: 1. Take the prednisone 40 mg daily. 2. Discontinue Canasa and treat with mesalamine enema q.h.s. for 2 weeks. 3. Start Lialda 4.8 g daily or she can take a substitute generic. 4. Low-fiber diet. 5. Stay on calcium, vitamin D while she is on the prednisone in particularly. 6. Her blood pressure has been elevated. She needs further follow up. 7. She has a liver lesion that should be monitored in the outpatient setting. Greater than 30 minutes discharging and coordinating care. Copy requested to: Dr. Swanson /[id number]/MODL MTDD
[2018-08-19] MEDS ORDERED: predniSONE 20 MG TAB PO SCH (09:00)
== END 2018-08-18 13:47 | disposition home or self-care (01) | DRG 386 ==
LOC: F3E 19:32
PROVIDERS: ADMIT Internal Medicine; ATTEND Internal Medicine
DX: K51.911 Ulcerative colitis, unspecified with rectal bleeding (principal); E87.1 Hypo-osmolality and hyponatremia; D62 Acute posthemorrhagic anemia; I10 Essential (primary) hypertension; E86.9 Volume depletion, unspecified
CPT/HCPCS: 96374; 97165-GO; J1650; J1720; J2405; J2920; J2930; J7512; Q9967

== ENCOUNTER → 2018-10-11 | Outpatient (CLI) | payer OTHER | LOC: FIMAGING 08:19 | PROVIDERS: ATTEND Internal Medicine Hematology & Oncology | DX: Z12.31 Encounter for screening mammogram for malignant neoplasm of breast (principal); Z85.3 Personal history of malignant neoplasm of breast ==

== ENCOUNTER → 2018-11-19 | Outpatient (CLI) | payer OTHER | LOC: FIMAGING 10:35 | DX: M54.17 Radiculopathy, lumbosacral region (principal); M79.18 Myalgia, other site; M51.36 Other intervertebral disc degeneration, lumbar region; M48.061 Spinal stenosis, lumbar region without neurogenic claudication; M87.051 Idiopathic aseptic necrosis of right femur; M87.052 Idiopathic aseptic necrosis of left femur; Z85.3 Personal history of malignant neoplasm of breast | CPT/HCPCS: A9585 ==

== ENCOUNTER 2019-01-22 07:09 | Day surgery (SDC) | payer OTHER ==
--- NOTE | 2019-01-21 21:23 | PDGENHP ---
History and Physical - Chief Complaint Bilateral Hip Pain - History of Present Illness Diagnosis: 1. Bilateral femoral head AVN~ 2. ~~Ulcerative colitis treated~with high dose oral/IV steroid use HISTORY OF PRESENT ILLNESS: Jessyis a~63 y.o.~~~active~female~who I have had the pleasure to consult on today.~I have enjoyed meeting her.~Huong~lives in [place].~~Jessyworks as a transportation escort (divorce).~~Huong~is ;~huong~has 1~children (23 yo).~~Jessyenjoys dance (jazz, hip hop, fusion, modern). Lexs~has no~hip pain.~Jessydoes not have~a known history of hip dysplasia. She is referred to us for bilateral~femoral head~AVN found incidentally on MRI done for radicular symptoms. Presentation today is of~no~bilateral~hip pain. ~The hips~do not~click and catch on~her. Sitting~does not present a problem~for her.~Jessydoes~report suffering from radicular symptoms, but not formal low back pain.~ Jessyhas~participated in physical therapy and has~tried other conservative measures including massage therapy.~Shashahas not~received sufficient symptomatic improvement. Jessyhas~utilized medication for pain management, including gabapentin.~Jessy has used medication for a few days, but stopped due to grogginess Jessyunderstands that~shashahas a hip and pelvis problem which should be researched and wishes to get a better understanding of~her~hip status, followed by an establishment of a treatment strategy, hoping~shashawould be able to get back to~her~well being active life. History: Past medical history:~~ Ulcerative colitis with~oral steroid use~(60 mg prednisone/day x1 month with subsequent slow taper, mid-July until November) Relevant familial history:~None which is relevant~ Past surgical history:~ 2 lumpectomy R breast for stage I breast cancer~(10 yrs ago) Cataract surgery b/l Trigger finger release Ectopic x2 Jessyhas never received general anesthesia. Pt states she requests spinal and sedation for upcoming procedure. Has had vomiting with MAC. I have reviewed, verified and agree with the past medical, surgical, family and social history. Current Medications:~has a current medication list which includes the following prescription(s): estradiol, gabapentin, influenza vaccine 2015 (4 yrs+), lorazepam, mesalamine with cleansing wipe, and prednisone. ALLERGIES:~is allergic to meperidine. Objective: Physical Examination: Jessyis 5~feet~2~inches tall and weighs~107~Lbs. Shoe size~7.5. Jessyis AAO x3; she~is well-nourished, in NAD. Skin is warm and dry. ~ Breathing is non-labored. ~CV with RRR by pulse. Abdomen is soft, NTND. Currently,~huong~walks with a~normal~gait. Trendelenburg sign is~negative~and proprioception~is reduced,~left~side. She~presents~with mild~signs of joint laxity.~Beightons Score:~1 (L elbow) She~is fit looking. ~~ Lower spine examination is~negative~for sciatic or femoral nerve irritation with negative~SLR &~femoral stretch tests. Range of motion of the spine is normal~for flexion, extension, and rotations,~with no~associated pain. Strength, Sensation and pulses are~L lateral foot 70% sensation compared to R subjectively Ankles and knees exams are~normal~and~no~mal-alignment is evident.~ Huong~has~no leg length discrepancy. Thigh circumference is~symmetric~with no evidence for muscle atrophy~on both~ sides. Hip ROM (degrees): FL ER At 90~hip FL IR At 90~hip FL AB AD EX IR Neutral hip ER Neutral hip R 120 50 30 45 5 5 50 20 L 120 50 35 45 5 5 50 20 Specific hip and pelvis tests: Impingement Test NAMITA Roll Add. Longus R Negative Negative Negative Negative L Negative Negative Negative Negative Glut. Med ITB Posterior Imp R Negative 5/5 strength Negative 5/5 strength Negative L Negative 5/5 strength Negative 5/5 strength Negative Squeeze test measured~normal Bony Symphysis pubis is~pain free~to touch while concentric activity of the rectus abdominis, does not~produce pain at its insertion. Ilio Psos specific tests are~negative for pain during cycling for~both hips~and remarkable for no snap HF has~no pain~both hips. No significant~capsule tenderness b/l Greater trochanteric burse is~pain free~on both hips. Piriformis tests: FAIR is~negative,~with no~local signs of neuritis related to sciatic nerve. SIJs examination is~normal~with~normal~NAMITA in relation and local tenderness. Hamstrings tests are~positive~pain with resisted strength testing (+)~the left hip. Imaging: Radiology studies which I~have personally reviewed, analyzed and measured are below: XR: AP of the hip and pelvis: Performed in a~good~technique Coccyx to pubic symphysis distance~1.4~cm. 17~degrees caudal [place]~Lines are preserved. Minimal~Pathological signs are seen in the Symphysis Pubis.~ Minimal~Pathological signs are seen at the Ischial~tuberosity. ~ Specific measurements show: NSA~ LCE Sourcil~Angle Sharp's angle Lat. Cam Lat. Pincer C.Over~sign Head~Coverage % ATDmm R 139 27 4 34 Neg Neg Neg 82% 27.7 L 138 29 8 35 Neg Neg Neg 82% 30.2 Pos. wall sign ISS NAD ~~Dysplasia Comments R Negative Negative 22.4~mm Negative No femoral head collapse L Negative Negative 20.1~mm Negative No femoral head collapse Sclerosis Sup. Lat. OA Cysts Joint Space-WBZ Joint Space-Medial R Negative Negative Negative 5.4~mm 5.0~mm L Negative Negative Negative 4.8~mm 4.4~mm X Table lateral: Anterior cam lesion is~not seen~on both hips. Alpha Angle: ~ Right~47~degrees Left~41~degrees MRI shows:~11/08/18 Pelvis - b/l femoral head AVN in large area without collapse Impression and plan:~ Jessyis a~63 y.o.~active female~suffering from~Bilateral Femoral Head AVN~ causing significant disability to~her~and altering~her~sport and life activities. Physical examination, imaging, and~her~story correspond with the diagnosis mentioned above. We discussed the etiology and natural history of femoral head avascular necrosis , as well as the likelihood of disease progression and success rates of surgical intervention with bilateral core decompression and bone marrow aspirate concentration. We also discussed the risks and benefits of surgery, as well as expected rehab including full weight bearing post-operatively with crutches as needed. Missy~will review the info presented. Missy is scheduled for bilateral core decompression and bone marrow aspirate concentration next week. She has a strong preference for spinal anesthesia with sedation. We discussed that this is an ok approach if she wants (from a surgical standpoint) and she will also need to discuss this with her anesthesiologist the day of surgery. Her GI MD will discuss whether or not she should continue her mesalamine krysta-operatively as they are concerned about a potential flare of her ulcerative colitis. We will see her at the time of surgery. Missy~is happy with this plan. I have also supplied~her~with handouts, outlining the expected surgical treatment and rehab involved. I wish~Missy~all the best, ~ Jo Damon MD History Information - Allergies/Home Medication List Allergies/Adverse Reactions: meperidine HCl [From Demerol] Allergy (Verified 01/15/19 13:02) SHORTNESS OF BREATHE Home Medications: Calcium Carb W/Vit D [Calcium Carb W/Vit D 500/200 (*)] 01/15/19 [Last Taken Unknown] Mesalamine 01/15/19 [Last Taken Unknown] I have personally reviewed and updated: medical history - Past Medical History Additional medical history: ulcerative colitis - Surgical History Reports: no pertinent surgical hx - Family History Positive for: non-pertinent - Social History Smoking Status: Former smoker Review of Systems Review of Systems: Physical Exam Physical Exam:
[2019-01-22] MEDS ORDERED: ACETAMINOPHEN 500 MG TAB PO ONE (07:18)
[2019-01-22] MEDS ORDERED: LR 1,000 ML IV ONE (07:18)
[2019-01-22] MEDS ORDERED: PREGABALIN 150 MG CAP PO ONE (07:18)
[2019-01-22] MEDS ORDERED: LIDOCAINE 1% 2 ML INJ ID PRN (07:18)
[2019-01-22] MEDS ORDERED: ceFAZolin 2 GM/DEXTROSE 100 ML IV ONE (07:18)
[2019-01-22] MEDS ORDERED: SCOPOLAMINE HYDROBROMIDE 1 MG/3 DAYS PATCH TD ONE ×2 (07:40→08:59)
--- NOTE | 2019-01-22 07:51 | PDANEPAE ---
ANE History of Present Illness bilateral femoral head avascular necrosis ANE Past Medical History - Cardiovascular History Hx Hypertension: No Hx Arrhythmias: No Hx Chest Pain: No Hx Coronary Artery / Peripheral Vascular Disease: No Hx CHF / Valvular Disease: No Hx Palpitations: No - Pulmonary History Hx COPD: No Hx Asthma/Reactive Airway Disease: No Hx Recent Upper Respiratory Infection: No Hx Oxygen in Use at Home: No Hx Sleep Apnea: No Sleep Apnea Screening Result - Last Documented: Negative - Neurologic History Hx Cerebrovascular Accident: No Hx Seizures: No Hx Dementia: No - Endocrine History Hx Diabetes: No Hypothyroid: No Hyperthyroid: No Obesity: no - Renal History Hx Renal Disorders: No - Liver History Hx Hepatic Disorders: No - Neurological & Psychiatric Hx Hx Neurological and Psychiatric Disorders: No Neurological / Psychiatric History Comment: situational anxiety - Cancer History Hx Cancer: Yes Cancer History Comment: R breast cancer with lymph node resection - Congenital Disorder History Hx Congenital Disorders: No - GI History Hx Gastrointestinal Disorders: Yes Gastrointestinal History Comment: ulcerative colitis - Other Health History Other Health History: post [place]apausal - Chronic Pain History Chronic Pain: Yes (sciatica) - Surgical History Prior Surgeries: cataract sx ANE Review of Systems Review of systems is: negative Review of Systems: - Exercise capacity Exercise capacity: >=4 METS METS (RN): 5 METS ANE Patient History - Allergies Allergies/Adverse Reactions: meperidine HCl [From Demerol] Allergy (Verified 01/15/19 13:02) SHORTNESS OF BREATHE - Home Medications Home medications: home medication list seen and reviewed Home Medications: Calcium Carb W/Vit D [Calcium Carb W/Vit D 500/200 (*)] 01/15/19 [Last Taken Unknown] Mesalamine 01/15/19 [Last Taken Unknown] - NPO status NPO Status: no food or drink >8 hours - Anes Hx Anes Hx: post operative nausea and vomiting - Smoking Hx Smoking Status: Former smoker - Family Anes Hx Family Hx Anesthesia Complications: none ANE Labs/Vital Signs - Vital Signs Height: 157.48 cm Weight: 48.534 kg ANE Physical Exam - Airway Neck exam: FROM Mallampati Score: Class 2 Mouth exam: normal dental/mouth exam - Pulmonary Pulmonary: no respiratory distress, clear to auscultation - Cardiovascular Cardiovascular: regular rate and rhythym - ASA Status ASA Status: II ANE Anesthesia Plan Anesthesia Plan: GA with mask, spinal
[2019-01-22] MEDS ORDERED: MIDAZOLAM 2 MG/2 ML VIAL IVP ONE (08:58)
[2019-01-22] MEDS ORDERED: BUPIVACAINE/EPI 0.25% 30 ML SDV ONE (09:00)
[2019-01-22] MEDS ORDERED: PROPOFOL/EMULSION 500 MG/50 ML BOTTLE IV ONE ×2 (09:10)
[2019-01-22] MEDS ORDERED: BUPIVACAINE/DEXTROSE 7.5MG/ML 2 ML SPINAL AMP SP ONE (09:11)
[2019-01-22] MEDS ORDERED: fentaNYL 100 MCG/2 ML INJ ONE (09:11)
[2019-01-22] MEDS ORDERED: PHENYLEPHRINE HCL 100 MCG/ML SYR ONE ×2 (09:56→11:59)
[2019-01-22] MEDS ORDERED: ONDANSETRON 4 MG/2 ML VIAL ONE (10:04)
[2019-01-22] MEDS ORDERED: DEXAMETHASONE 4 MG/ML VIAL ONE ×2 (10:04)
[2019-01-22] MEDS ORDERED: ePHEDrine SULFATE 25 MG/5 ML SYR ONE (10:17)
[2019-01-22] MEDS ORDERED: oxyCODONE IR 5 MG TAB PO PRN (10:19)
[2019-01-22] MEDS ORDERED: ALBUTEROL 3 ML DEYVIAL IH PRN (10:19)
[2019-01-22] MEDS ORDERED: DEXAMETHASONE 4 MG/ML VIAL IVP PRN (10:19)
[2019-01-22] MEDS ORDERED: LABETALOL HCL 5 MG/ML 20 ML MDV IVP PRN (10:19)
[2019-01-22] MEDS ORDERED: PHENYLEPHRINE HCL 100 MCG/ML SYR IVP PRN (10:19)
[2019-01-22] MEDS ORDERED: HYDROmorphONE/DILAUDID 1 MG/ML INJ IVP PRN (10:19)
[2019-01-22] MEDS ORDERED: METOCLOPRAMIDE 10 MG/2 ML VIAL IVP PRN (10:19)
[2019-01-22] MEDS ORDERED: fentaNYL 100 MCG/2 ML INJ IVP PRN (10:19)
[2019-01-22] MEDS ORDERED: NALOXONE HCL 0.4 MG/ML INJ IVP PRN (10:19)
[2019-01-22] MEDS ORDERED: ACETAMINOPHEN 500 MG TAB PO PRN (10:19)
[2019-01-22] MEDS ORDERED: LR 500 ML IV PRN (10:19)
[2019-01-22] MEDS ORDERED: ONDANSETRON 4 MG/2 ML VIAL IVP PRN (10:19)
[2019-01-22] MEDS ORDERED: PROMETHAZINE HCL 25 MG/ML INJ IVP PRN (10:19)
[2019-01-22] MEDS ORDERED: PROPOFOL 200 MG/20 ML VIAL ONE ×2 (11:44→12:32)
--- NOTE | 2019-01-22 13:43 | POSTOPPROG ---
Post Op Note Date of Operation: 01/22/19 Surgeon: Jamie Luevano Adviser Sales: Dr. Patterson Anesthesia: GET(General Endotracheal) Pre-op Diagnosis: Bilateral AVN Post-op Diagnosis: Bilateral AVN Procedure: Bilateral core decompression with BMAC Inf/Abcess present in the surg proc area at time of surgery?: No
[2019-01-22] MEDS ORDERED: ACETAMINOPHEN 500 MG TAB ONE (14:41)
--- NOTE | 2019-01-22 15:25 | POSTANESTH ---
Post Anesthetic Evaluation Cardiovascular Status: Normal, Stable Respiratory Status: Normal, Stable Level of Consciousness/Mental Status: Can Participate in Eval Pain Control: Adequate, Prn Tx Ordered Nausea/Vomiting Control: Adequate, Prn Tx Ordered Complications Possibly Related to Anesthesia: None Noted
[2019-01-22 15:57] VITALS: BP 141/91
[2019-01-23] MEDS ORDERED: PATCH REMOVAL 1 EA PATCH TD ONE (08:59)
== END 2019-01-22 16:07 | disposition home or self-care (01) ==
LOC: FSGY 07:09
PROVIDERS: ATTEND Orthopaedic Surgery Sports Medicine
DX: M87.051 Idiopathic aseptic necrosis of right femur (principal); M87.052 Idiopathic aseptic necrosis of left femur; R60.9 Edema, unspecified; M85.80 Other specified disorders of bone density and structure, unspecified site; K51.90 Ulcerative colitis, unspecified, without complications; Z79.52 Long term (current) use of systemic steroids; Z85.3 Personal history of malignant neoplasm of breast
CPT/HCPCS: C1713; J0690; J1100; J2250; J2370; J2405; J2704; J3010

== ENCOUNTER → 2019-03-08 | Outpatient (CLI) | payer OTHER | LOC: FIMAGING 07:59 ==